=== PATIENT | female | born 1955 | race Caucasian/White ===

== ENCOUNTER → 2017-10-22 | Outpatient (CLI) | payer OTHER | LOC: M SMT 09:36 | DX: J68.0 Bronchitis and pneumonitis due to chemicals, gases, fumes and vapors (principal) | CPT/HCPCS: 71046 ==

== ENCOUNTER → 2018-10-25 | Outpatient (CLI) | payer OTHER ==
[2018-10-25 11:04] LABS: BASO # 0.1 10^3/uL (0.0-0.2); BASO % 1.1 % (0.0-1.0); EOS # 0.4 10^3/uL (0.0-0.50); EOS % 4.2 % (0.0-3.0); HEMATOCRIT 43.4 % (36.0-47.0); LYMPH # 3.5 10^3/uL (1.5-4.5); LYMPH % 38.5 % (24.0-44.0); MEAN CORPUSCULAR HEMOGLOBIN 28.8 pg (27.0-33.0); MEAN CORPUSCULAR HGB CONC 32.3 g/dl (32.0-36.5); MEAN CORPUSCULAR VOLUME 89.3 fl (80.0-96.0); MONO # 0.9 10^3/uL (0.0-0.8); NEUTROPHILS # 4.2 10^3/uL (1.8-7.7); NEUTROPHILS % 45.9 % (36.0-66.0); PLATELET COUNT, AUTOMATED 252 10^3/uL (150-450); RED BLOOD COUNT 4.86 10^6/uL (4.00-5.40); WHITE BLOOD COUNT 9.1 10^3/uL (4.0-10.0)
== END ==
LOC: M LAB 10:31
PROVIDERS: ATTEND Internal Medicine Pulmonary Disease
DX: J68.0 Bronchitis and pneumonitis due to chemicals, gases, fumes and vapors (principal)

== ENCOUNTER → 2019-11-07 | Outpatient (CLI) | payer OTHER ==
--- NOTE | 2019-11-07 10:27 | REPPI ---
TWO-VIEW CHEST: REASON FOR EXAM: Routine followup. COMPARISON EXAMINATION: 10/22/2017 FINDINGS: The superior mediastinal structures are midline. The cardiac silhouette is unremarkable in size, shape, and position. The diaphragmatic surfaces of the lungs are regular, and the costophrenic angles are clear. The pulmonary [place] are clear. The imaged osseous structures are intact. IMPRESSION: There is no acute cardiopulmonary disease. Electronically Signed by Wilman Power DO 11/07/2019 02:00 P
== END ==
LOC: M PLAIMG 08:22
PROVIDERS: ATTEND Internal Medicine Pulmonary Disease
DX: J68.0 Bronchitis and pneumonitis due to chemicals, gases, fumes and vapors (principal)

== ENCOUNTER → 2021-04-17 | Outpatient (CLI) | payer OTHER ==
--- NOTE | 2021-04-17 12:13 | REP ---
INDICATION: BRONCHITIS COMPARISON: 11/07/2019 TECHNIQUE: PA and lateral. FINDINGS: The mediastinum and cardiac silhouette are normal. The lung [place] are clear and without acute consolidation, effusion, or pneumothorax. The skeletal structures are intact and normal. IMPRESSION: No acute cardiopulmonary process. <Electronically signed by Anjum Albright > 04/17/21 [id number]
== END ==
LOC: M PLAIMG 11:09
PROVIDERS: ATTEND Internal Medicine Pulmonary Disease
DX: J68.0 Bronchitis and pneumonitis due to chemicals, gases, fumes and vapors (principal)

== ENCOUNTER → 2022-04-23 | Outpatient (CLI) | payer OTHER | LOC: M PLAIMG 09:33 | PROVIDERS: ATTEND Internal Medicine Pulmonary Disease | DX: J68.0 Bronchitis and pneumonitis due to chemicals, gases, fumes and vapors (principal) ==

== ENCOUNTER → 2023-03-20 | Outpatient (CLI) | payer OTHER | LOC: M PLAIMG 10:54 | PROVIDERS: ATTEND Internal Medicine Pulmonary Disease | DX: J68.0 Bronchitis and pneumonitis due to chemicals, gases, fumes and vapors (principal) ==

== ENCOUNTER → 2025-02-08 | Outpatient (CLI) | payer OTHER, MEDICARE | LOC: M PLAIMG 10:53 | PROVIDERS: ATTEND Internal Medicine Pulmonary Disease | DX: J68.0 Bronchitis and pneumonitis due to chemicals, gases, fumes and vapors (principal) ==